=== PATIENT | female | born 1975 | race Asian ===

== ENCOUNTER 2019-12-04 06:21 | Emergency (ER) | payer BC ==
[~2019-12-04] VITALS: Ht 160 cm; Wt 86.2 kg
[2019-12-04] MEDS ORDERED: NORE1TAB56 PO (06:40)
[2019-12-04] MEDS ORDERED: diphenhydrAMINE 50 MG/1 ML VIAL IV ONE (07:00)
[2019-12-04] MEDS ORDERED: IV NORMAL SALINE 1000 ML BAG IV ONE (07:00)
[2019-12-04] MEDS ORDERED: ACETAMINOPHEN ES 500 MG TABLET PO ONE (07:00)
[2019-12-04] MEDS ORDERED: METOCLOPRAMIDE HCL 10 MG/2 ML VIAL IV ONE (07:00)
[2019-12-04] MEDS ORDERED: ACETAMINOPHEN ES 500 MG TABLET ONE (07:10)
[2019-12-04] MEDS ORDERED: diphenhydrAMINE 50 MG/1 ML VIAL ONE (07:10)
[2019-12-04] MEDS ORDERED: METOCLOPRAMIDE HCL 10 MG/2 ML VIAL ONE (07:10)
--- NOTE | 2019-12-04 07:23 | NUR ---
PT IS IN ROOM #2A. DR WALLACE EVALUATED THE PT.
[2019-12-04 08:34] LABS: BASOPHILS % (AUTO) 0.5 % (0.0-2.0); EOSINOPHILS # (AUTO) 0.3 K/uL (0.0-0.7); EOSINOPHILS % (AUTO) 4.9 % (0.0-7.0); HEMATOCRIT 43.5 % (31.2-41.9); HEMOGLOBIN 14.6 g/dL (10.9-14.3); LYMPHOCYTES # (AUTO) 1.6 K/uL (20.0-40.0); LYMPHOCYTES % (AUTO) 26.3 % (20.5-51.5); MEAN CORPUSCULAR HEMOGLOBIN 32.1 uug (24.7-32.8); MEAN CORPUSCULAR HGB CONC 34 g/dL (32.3-35.6); MEAN CORPUSCULAR VOLUME 95.8 fL (75.5-95.3); MONOCYTES # (AUTO) 0.7 K/uL (2.0-10.0); MONOCYTES % (AUTO) 11.7 % (0.0-11.0); NEUTROPHILS # (AUTO) 3.4 K/uL (1.8-8.9); NEUTROPHILS % (AUTO) 56.6 % (38.5-71.5); PLATELET COUNT (AUTO) 243 K/uL (179-408); RED BLOOD CELL COUNT(AUTO) 4.54 MIL/uL (3.63-4.92); WHITE BLOOD COUNT (AUTO) 5.9 K/uL (3.8-11.8)
[2019-12-04 08:59] LABS: CREATININE 0.6 mg/dL (0.6-1.3)
[2019-12-04 09:05] LABS: BILIRUBIN,TOTAL 0.4 mg/dL (0.2-1.0); TOTAL PROTEIN, SERUM 6.8 g/dL (6.4-8.2)
--- NOTE | 2019-12-04 09:20 | NUR ---
PT WAS D/C'd TO HOME. D/C INSTRUCTIONS GIVEN TO THE PT.
[2019-12-04 09:28] VITALS: BP 129/78
== END 2019-12-04 09:29 | disposition home or self-care (01) ==
LOC: ER 06:30
DX: R51 Headache (principal); Z79.899 Other long term (current) drug therapy
CPT/HCPCS: 36415; 70450; 80053; 83735; 84702; 85025; 96374; 96375; 99284; J1200; J2765; A4663; A9150; J7030